=== PATIENT | female | born 1960 | race Two or more races ===

== ENCOUNTER 2017-01-09 05:44 | Inpatient (IN) | payer OTHER ==
[2017-01-09] VITALS (12 sets, daily range): BP systolic 105–137; BP diastolic 57–82
[~2017-01-09] VITALS: Ht 152.4 cm; Wt 74.4 kg
[2017-01-09] MEDS ORDERED: IV SET PRIMARY 1 EA INFUS.SET MC ONE (06:18)
[2017-01-09] MEDS ORDERED: NEEDLELESS EST SET LARGE BORE 1 EA INFUS.SET MC ONE (06:18)
[2017-01-09] MEDS ORDERED: CEFAZOLIN SODIUM/DEXTROSE,ISO 50 ML IV ONE (06:18)
[2017-01-09] MEDS ORDERED: IV LR 1000 ML 1,000 ML ONE (06:18)
[2017-01-09] MEDS ORDERED: SECONDARY IV SET 1 EA INFUS.SET MC ONE ×2 (06:18→16:08)
[2017-01-09] MEDS ORDERED: METF10002 PO (07:11)
[2017-01-09] MEDS ORDERED: BUSP15TA3 PO (07:11)
[2017-01-09] MEDS ORDERED: OMEP40CA37 PO (07:11)
[2017-01-09] MEDS ORDERED: SERT50TA PO (07:11)
[2017-01-09] MEDS ORDERED: HYDR10SY15 PO (07:11)
[2017-01-09] MEDS ORDERED: MELO-264 PO (07:11)
[2017-01-09] MEDS ORDERED: HYDR-548 PO (07:11)
[2017-01-09] MEDS ORDERED: ATOR40TA PO (07:11)
[2017-01-09] MEDS ORDERED: ZOLP10TA6 PO (07:12)
[2017-01-09] MEDS ORDERED: MIDAZOLAM HCL 2 MG/2ML VIAL ONE (08:53)
[2017-01-09] MEDS ORDERED: FENTANYL PF 100MCG/2ML AMPUL ONE ×4 (08:54→11:20)
[2017-01-09] MEDS ORDERED: ANCEF 1 GM/50 ML D5W IV ONE ×2 (09:00)
[2017-01-09] MEDS ORDERED: TRANEXAMIC ACID 3,000 MG in SODIUM CHLORIDE IRRIG SOLUTION 70 ML IR ONE (09:00)
[2017-01-09] MEDS ORDERED: BUPIVACAINE MPF 0.5% W/EPI INJ 30 ML VIAL ONE (10:56)
[2017-01-09] MEDS ORDERED: BACITRACIN 50000 UNITS/VIAL ONE (10:56)
[2017-01-09] MEDS ORDERED: KETOROLAC TROMETHAMINE INJ 30 MG/ML VIAL ONE (10:56)
[2017-01-09] MEDS ORDERED: HYDROMORPHONE 1 MG/1 ML DISP.SYRIN ONE (11:13)
[2017-01-09] MEDS ORDERED: ZOFRAN 4mg/2ML IV PRN (12:00)
[2017-01-09] MEDS ORDERED: DULCOLAX 10 MG/SUPP.RECT RC PRN (12:00)
[2017-01-09] MEDS ORDERED: TYLENOL 650 MG TABLET PO PRN (12:00)
[2017-01-09] MEDS ORDERED: AMBIEN 5 MG TABLET PO PRN (12:00)
[2017-01-09] MEDS ORDERED: ANCEF 1 G in IV D5W 50 ML IV SCH (12:00)
[2017-01-09] MEDS ORDERED: HYDROMORPHONE 1 MG/1 ML DISP.SYRIN SQ PRN (12:00)
[2017-01-09] MEDS ORDERED: SENOKOT 8.6 MG TABLET PO PRN (12:00)
[2017-01-09] MEDS ORDERED: HYDROCODONE/APAP 5/325MG 1 EACH TABLET PO PRN (12:00)
[2017-01-09] MEDS ORDERED: COLACE 250 MG CAPSULE PO PRN (12:00)
--- NOTE | 2017-01-09 12:00 | NUR ---
MS RN NOTES RECEIVED PATIENT FROM OR COMPLAINING OF MODERATE PAIN. ALERT, ORIENTED X4 WITH AT BEDSIDE. PATIENT ORIENTED TO ROOM CALL LIGHT WITHIN REACH. WILL CONTINUE TO MONITOR.
[2017-01-09] MEDS ORDERED: IV SET PRIMARY PUMP SET 1 EA INFUS.SET MC ONE (12:29)
[2017-01-09] MEDS ORDERED: SET PCA INFUSE SET 1 EA INFUS.SET MC ONE (12:30)
[2017-01-09] MEDS: HYDROCODONE/APAP 10/325MG 1 EA TABLET PO PRN (12:47)
[2017-01-09] MEDS: IV D5/0.45 NACL 1,000 ML IV PRN (12:49)
--- NOTE | 2017-01-09 13:00 | NUR ---
MS RN NOTES PATIENT COMPLAINS OF PAIN, DEMURRAGE AGENT PUMP STARTED FOR PATIENT PER MD ORDER WILL CONTINUE TO MONITOR CLOSELY.
[2017-01-09] MEDS: HYDROMORPHONE MDV 30 MG in IV NS 0.9% 15 ML, PCA TOTAL VOLUME 1 BAG IV PRN ×3 (13:03)
--- NOTE | 2017-01-09 15:22 | NUR ---
MS RN NOTES PATIENT AMBULATED WITH PT FOR 60 FEET WITH ASSISTANCE.
[2017-01-09] MEDS: SERTRALINE HCL 50 MG TABLET PO SCH (16:11)
[2017-01-09] MEDS: busPIRone 5 MG TABLET PO SCH (16:12)
[2017-01-09] MEDS: METFORMIN 500 MG TABLET PO SCH (16:12)
[2017-01-09] MEDS: ANCEF 1 G in IV D5W 50 ML IV SCH (16:13)
[2017-01-09] MEDS: RIVAROXABAN 10 MG TABLET PO SCH (16:14)
[2017-01-09] MEDS: ATORVASTATIN 40 MG TABLET PO SCH (17:30)
--- NOTE | 2017-01-09 18:40 | NUR ---
MS RN NOTES PATIENT IN BED RESTING NO SOB OR ACUTE DISTRESS NOTED. ALL DUE MEDICATIONS GIVEN. ALL NEEDS MET. WILL ENDORSE TO PM SHIFT PAOLO.
--- NOTE | 2017-01-09 19:46 | NUR ---
MS/RN OPENING NOTES RECEIVED PATIENT IN BED, AWAKE,ALERTX4 FAMILY MEMBER AT BEDSIDE. WITH F/C. MONITORING FOR PAIN DUE TO S/P LEFT KNEE REPLACEMENT. WILL CONTINUE TO MONITOR AND PROVIDE CARE.CALL LIGHTS WITHIN REACH.
[2017-01-09] MEDS ORDERED: MAG HYDROX/AL HYDROX/SIMETH 30 ML UDC PO PRN (21:30)
[2017-01-09] MEDS ORDERED: diphenhydrAMINE HCL 25 MG CAPSULE PO PRN (21:30)
[2017-01-09] MEDS ORDERED: CLONIDINE HCL 0.1 MG TABLET PO PRN (21:30)
--- NOTE | 2017-01-09 21:33 | NUR ---
MS/RN NOTES PHARMACY INFORMED ABOUT USE OF DILAUDID AWNING MAKER AND INSTALLER PUMP AND HAVE REQUESTED FOR REFILL BAG. KEPT IN NARCOTIC BIN FOR SAFETY.MD DR. FRENCH MADE ROUNDS TO CHECK PATIENT CONDITION.
[2017-01-09] MEDS ORDERED: ZOLPIDEM TARTRATE 10 MG TABLET PO SCH (22:00)
[2017-01-09] MEDS ORDERED: ZOLPIDEM TARTRATE 10 MG TABLET ONE (23:24)
[2017-01-09] MEDS: ZOLPIDEM TARTRATE 10 MG TABLET PO PRN (23:29)
[2017-01-10] MEDS: ANCEF 1 G in IV D5W 50 ML IV SCH (00:29)
--- NOTE | 2017-01-10 01:45 | NUR ---
MS/RN NOTES PATIENT VERBALIZED THE NEED FOR BREAK THROUGH PAIN. NORCO 5 /325 MG PO TAB. PAIN MONITORING/EFFECTIVENESS.
[2017-01-10] MEDS: HYDROCODONE/APAP 10/325MG 1 EA TABLET PO PRN ×5 (01:49→21:02)
[2017-01-10] MEDS: IV D5/0.45 NACL 1,000 ML IV PRN (04:52)
--- NOTE | 2017-01-10 06:13 | NUR ---
MS/RN NOTES PATIENT AWAKE, ALERT X3. ABLE TO VERBALIZE NEEDS. INFORMED PAIN MONITORING AND USE NEEDED PAIN MEDICATION VIA SPLITTER MACHINE PIMP. CPM TO BE PROVIDED AND REQUIESTED IN AM . AWAITING FOR PT.CALL LIGHTS WITHIN REACH.
--- NOTE | 2017-01-10 06:47 | NUR ---
MS/RN CLOSING NOTES PATIENT IN HOB ELEVATE, AWAKE, ALERTX3. NO S/S OF SOB OR DISTRESS. WILL ENDORSE TO AM RN PAOLO.
--- NOTE | 2017-01-10 07:00 | NUR ---
NURSE OPENING NOTES: RECEIVED REPORT FROM NIGHT NURSE. PT WAS SITTING UP IN BED WATCHING TV WITH BED IN LOWEST POSITION, CALL LIGHTS WITHIN REACH,TWO SIDE RAILS UP, NO SIGNS OF SOB OR DISTRESS. WILL ASSESS, MONITOR, AND IMPLEMENT PLAN OF CARE.
[2017-01-10 08:00] VITALS: BP 125/80
[2017-01-10] MEDS: SERTRALINE HCL 50 MG TABLET PO SCH (08:29)
[2017-01-10] MEDS: METFORMIN 500 MG TABLET PO SCH ×2 (08:29→16:25)
[2017-01-10] MEDS: busPIRone 5 MG TABLET PO SCH ×2 (08:29→16:31)
[2017-01-10] MEDS: PANTOPRAZOLE 40 MG TABLET.DR PO SCH (08:30)
[2017-01-10] MEDS ORDERED: MELOXICAM 7.5 MG TABLET PO SCH (09:00)
[2017-01-10] MEDS: DOCUSATE SODIUM 100 MG CAPSULE PO SCH ×2 (09:40→16:24)
[2017-01-10 16:00] VITALS: BP 134/67
[2017-01-10] MEDS: RIVAROXABAN 10 MG TABLET PO SCH (16:25)
[2017-01-10] MEDS: BLOOD SUGAR DIAGNOSTIC 1 EACH STRIP IN SCH ×2 (17:41→22:00)
[2017-01-10] MEDS: ATORVASTATIN 40 MG TABLET PO SCH (17:49)
[2017-01-10] MEDS ORDERED: SET PCA INFUSE SET 1 EA INFUS.SET MC ONE (18:14)
[2017-01-10] MEDS: HYDROMORPHONE MDV 30 MG in IV NS 0.9% 15 ML, PCA TOTAL VOLUME 1 BAG IV PRN ×3 (18:30)
--- NOTE | 2017-01-10 19:34 | NUR ---
NURSE CLOSING NOTES PATIENT IS RESTING IN BED WITH BED IN THE LOWEST POSITION, CALL LIGHT WITHIN REACH, BOTH SIDE RAILS UP X2. PATIENT WAS TALKING TO HER SON, WITH NO SIGNS OF SOB OR SIGNS OF DISTRESS. GAVE REPORT TO NIGHT NURSE.
[2017-01-10 20:00] VITALS: BP 125/75
--- NOTE | 2017-01-10 20:00 | NUR ---
RECEIVED PATIENT IN BED, ALERT AND ORIENTED X4, CALM, NO SOB, NO RESPIRATORY DISTRESS, S/P LEFT TKA 01/10/17, ON VICE PRESIDENT REGULATORY DILAUDID, ON SP02 MONITORING, 02 SAT 99%, REINFORCE TEACHING REGARDING VICE PRESIDENT REGULATORY USE, LEFT KNEE DRESSING INTACT, NO BLEEDING NOTE. REPOSITIONED FOR COMFORT, PUT PATIENT IN CPM PER SCHEDULE. PATIENT GIVEN BEDPAN, NEEDS ATTENDED, CALL LIGHT WITHIN REACH.
[2017-01-10 21:13] VITALS: BP 125/75
[2017-01-11] MEDS: HYDROCODONE/APAP 10/325MG 1 EA TABLET PO PRN ×7 (01:58→21:00)
--- NOTE | 2017-01-11 02:08 | NUR ---
COMPLAINING OF 8/10 PAIN TO LEFT KNEE, GIVEN NORCO 10/325 PO, WILL CONTINUE TO MONITOR.
--- NOTE | 2017-01-11 03:08 | NUR ---
PATIENT RESTING COMFORTABLY IN BED, NO RESPIRATORY DISTRESS, KEPT HOB ELEVATED, 02 SAT AT 2LPM VIA NC 99%, WILL CONTINUE TO MONITOR.
[2017-01-11] MEDS: BLOOD SUGAR DIAGNOSTIC 1 EACH STRIP VI SCH ×4 (06:45→22:07)
[2017-01-11] MEDS: INSULIN REGULAR, HUMAN 100 UNIT/ML 3 ML VIAL SQ PRN ×3 (06:46→18:06)
[2017-01-11] MEDS ORDERED: DEXTROSE 50%-WATER 50 ML DISP.SYRIN IV PRN (07:00)
--- NOTE | 2017-01-11 07:00 | NUR ---
PATIENT IS AWAKE AND ALERT, NO SOB, NO RESPIRATORY DISTRESS, S/P LEFT KNEE ARTHROPLASTY, PAIN MANAGEMENT VIA CREDIT RATING INSPECTOR PUMP AND NORCO 10/325 PO PRN AND DILAUDID 1 MG SQ FOR BREAKTHROUGH PAIN. LEFT KNEE DRESSING IS CLEAN, NO BLEEDING. ABLE TO VOID USING BEDPAN WITHOUT DIFFICULTY, NEEDS ATTENDED, CALL LIGHT WITHIN REACH.
[2017-01-11 08:00] VITALS: BP 132/73
--- NOTE | 2017-01-11 08:00 | NUR ---
MS RN [id number] ON BED, AWAKE,ALERT,ORIENTED X4,NOT IN ANY FORM OF DISTRESS, RESPIRATIONS EVEN AND UNLABORED,ABDOMEN SOFT,POSITIVE BOWEL SOUNDS, S/P LEFT KNEE SX, W/ EDGE INKER HEELS OF DILAUDID, DENIES PAIN AT THIS TIME, SX SITE W/ DRESSING DRY AND INTACT, WILL MONITOR PATIENT'S CONDITION.
--- NOTE | 2017-01-11 08:30 | NUR ---
MS BAE BREAKFAST SERVED,DUE MEDS GIVEN. TOLERATED WELL.
[2017-01-11] MEDS: DOCUSATE SODIUM 100 MG CAPSULE PO SCH ×2 (09:14→18:00)
[2017-01-11] MEDS: busPIRone 5 MG TABLET PO SCH ×2 (09:14→18:00)
[2017-01-11] MEDS: PANTOPRAZOLE 40 MG TABLET.DR PO SCH (09:14)
[2017-01-11] MEDS: SERTRALINE HCL 50 MG TABLET PO SCH (09:14)
[2017-01-11] MEDS: METFORMIN 500 MG TABLET PO SCH ×2 (09:14→18:00)
--- NOTE | 2017-01-11 11:00 | NUR ---
MS RN WAS SEEN BY PT, WALKS AROUND W/ WALKER.DENITRATOR OPERATOR DC,WILL GIVE NORCO INSTEAD.
[2017-01-11 11:15] LABS: BASOPHILS % (AUTO) 0.1 % (0.0-2.0); HEMATOCRIT 32 % (33-45); HEMOGLOBIN 10.9 g/dL (11.5-14.8); LYMPHOCYTES # (AUTO) 1.3 /CMM (0.8-4.8); LYMPHOCYTES % (AUTO) 8.6 % (20.0-44.0); MEAN CORPUSCULAR HEMOGLOBIN 31 PG (26.0-33.0); MEAN CORPUSCULAR HGB CONC 34 g/dl (31.0-36.0); MEAN CORPUSCULAR VOLUME 91 fL (82-100); MONOCYTES % (AUTO) 6.4 % (2.0-12.0); NEUTROPHILS # (AUTO) 12.7 /CMM (1.8-8.9); NEUTROPHILS % (AUTO) 84.9 % (43.0-81.0); PLATELET COUNT (AUTO) 217 /CMM (150-450); RDW COEFFICIENT OF VARIATION 13.1 (11.5-15.0); RED BLOOD CELL COUNT(AUTO) 3.51 MIL/uL (4.0-5.2)
[2017-01-11 16:00] VITALS: BP 127/73
--- NOTE | 2017-01-11 17:25 | NUR ---
MS NR BS-181 - 3 UNITS GIVEN.
[2017-01-11] MEDS: ATORVASTATIN 40 MG TABLET PO SCH (18:00)
[2017-01-11] MEDS: RIVAROXABAN 10 MG TABLET PO SCH (18:01)
--- NOTE | 2017-01-11 18:29 | NUR ---
MS RN ON BED, NO DISTRESS NOTED.
--- NOTE | 2017-01-11 19:30 | NUR ---
RN NOTES RECEIVED PT. AWAKE ON BED, A/OX3, INDONESIAN/LATVIAN SPEAKING, DRESSING ON THE LEFT KNEE DRY AND INTACT, ALL LIGHT WITHIN REACH, SIDERAILS UPX2 CONTINUE TO MONITOR
[2017-01-11 20:00] VITALS: BP 127/73
--- NOTE | 2017-01-11 21:00 | NUR ---
RN NOTES COMPLAINED OF LEFT KNEE PAIN- NORCO 10/325MG PO GIVEN ORDERED, V/S STABLE
[2017-01-11] MEDS: *INSULIN REGULAR(HUMULIN R)HUM 100 UNIT/ML VIAL SQ PRN (22:08)
[2017-01-11] MEDS: ZOLPIDEM TARTRATE 10 MG TABLET PO PRN (22:13)
[2017-01-12] MEDS: HYDROCODONE/APAP 10/325MG 1 EA TABLET PO PRN ×6 (02:04→21:29)
--- NOTE | 2017-01-12 02:09 | NUR ---
RN NOTES COMPLAINED OF LEFT KNEE PAIN- NORCO 10/325 MG PO GIVEN ORDERED, V/S STABLE
--- NOTE | 2017-01-12 06:08 | NUR ---
RN NOTES BLOOD SUGAR-144, PT. REFUSED INSULIN COVERAGE
[2017-01-12 06:16] LABS: BASOPHILS % (AUTO) 0.2 % (0.0-2.0); EOSINOPHILS % (AUTO) 0.3 % (0.0-6.0); HEMATOCRIT 30 % (33-45); HEMOGLOBIN 10.4 g/dL (11.5-14.8); LYMPHOCYTES # (AUTO) 2.3 /CMM (0.8-4.8); LYMPHOCYTES % (AUTO) 19.6 % (20.0-44.0); MEAN CORPUSCULAR HEMOGLOBIN 31 PG (26.0-33.0); MEAN CORPUSCULAR HGB CONC 34 g/dl (31.0-36.0); MEAN CORPUSCULAR VOLUME 92 fL (82-100); MONOCYTES % (AUTO) 8.4 % (2.0-12.0); NEUTROPHILS # (AUTO) 8.3 /CMM (1.8-8.9); NEUTROPHILS % (AUTO) 71.5 % (43.0-81.0); PLATELET COUNT (AUTO) 218 /CMM (150-450); RDW COEFFICIENT OF VARIATION 12.9 (11.5-15.0); RED BLOOD CELL COUNT(AUTO) 3.31 MIL/uL (4.0-5.2); WHITE BLOOD COUNT (AUTO) 11.6 K/uL (4.3-11.0)
--- NOTE | 2017-01-12 06:49 | NUR ---
RN NOTES COMPLAINED OF LEFT KNEE PAIN- OXY IR 15MG PO GIVEN ORDERED, V/S STABLE, MORNING CARE RENDERED, PT. NEEDS ATTENDED Addendum: 01/12/17 at 0701 by BUD MADDEN RN RIGHT PAIN MEDICATION NORCO 10/325 MG PO
[2017-01-12 06:57] LABS: CALCIUM, SERUM 8.4 mg/dL (8.5-10.1); CREATININE 0.6 mg/dL (0.6-1.3); POTASSIUM 3.8 mmol/L (3.5-5.1)
--- NOTE | 2017-01-12 07:30 | NUR ---
RN NOTES RECEIVED PT. AWAKE ON BED, A/OX3, ALBANIAN/FRENCH SPEAKING, DRESSING ON THE LEFT KNEE DRY AND INTACT, ALL LIGHT WITHIN REACH, SIDERAILS UPX2 CONTINUE TO MONITOR
[2017-01-12 08:00] VITALS: BP 135/70
[2017-01-12 08:06] VITALS: BP 138/70
[2017-01-12] MEDS: BLOOD SUGAR DIAGNOSTIC 1 EACH STRIP VI SCH ×4 (08:17→21:29)
[2017-01-12] MEDS: PANTOPRAZOLE 40 MG TABLET.DR PO SCH (08:36)
[2017-01-12] MEDS: DOCUSATE SODIUM 100 MG CAPSULE PO SCH ×2 (08:36→16:55)
[2017-01-12] MEDS: busPIRone 5 MG TABLET PO SCH ×2 (08:36→16:55)
[2017-01-12] MEDS: SERTRALINE HCL 50 MG TABLET PO SCH (08:37)
[2017-01-12] MEDS: METFORMIN 500 MG TABLET PO SCH ×2 (08:37→16:55)
--- NOTE | 2017-01-12 09:00 | NUR ---
MS RN PT IN BED, AWAKE,ALERT,ORIENTED X4,S/P L KNEE TKA BY DR. HOFF 01/09/17, DRESSING AND BANDAGE IN PLACE. ON RA, NOT IN ANY FORM OF DISTRESS, RESPIRATIONS EVEN AND UNLABORED,ABDOMEN SOFT,POSITIVE BOWEL SOUNDS, DENIES PAIN AT THIS TIME, BED LOW LOCKED. DISCUSSES POC, VERBALIZED UNDERSTANDING. CALL LIGHT WITHIN REACH, WILL MONITOR PATIENT'S CONDITION.
--- NOTE | 2017-01-12 09:30 | NUR ---
MS RN NOTES ADMINISTERED DUE MEDS.
--- NOTE | 2017-01-12 11:36 | NUR ---
MS RN NOTES BS CHECK = 128 MG/DL. NO INSULIN COVERAGE GIVEN.
[2017-01-12 16:00] VITALS: BP 145/72
[2017-01-12] MEDS ORDERED: MAGNESIUM HYDROXIDE 30 ML UDC PO PRN (16:30)
[2017-01-12] MEDS: RIVAROXABAN 10 MG TABLET PO SCH (16:57)
[2017-01-12] MEDS: ATORVASTATIN 40 MG TABLET PO SCH (17:02)
--- NOTE | 2017-01-12 17:04 | NUR ---
MS RN NOTES BS CHECK = 161 MG/DL. PATIENT REFUSED INSULIN AT THIS TIME, SHE SAID SHE WILL JUST HAVE METFORMIN FOR NOW.
[2017-01-12 18:00] VITALS: BP 145/72
--- NOTE | 2017-01-12 18:31 | NUR ---
MS RN CLOSING NOTES PT IN BED RESTING, A/OX3, ESTONIAN/BULGARIAN SPEAKING, S/P LEFT KNEE TKA 01/09/[address] HOFF, CDI DRESSING. ON RA, NAD, NO SOB, RFA G22 FLUSHES WELL SITE CLEAR, AMBULATES WITH WALKER AND P.T. SEEN BY DR. FRENCH EARLIER. PAIN MANAGEMENT ORDERED. ALL NEEDS MET, CALL LIGHT WITHIN REACH, SIDERAILS UPX2, WILL ENDORSE TO NEXT SHIFT FOR PAOLO.
--- NOTE | 2017-01-12 19:30 | NUR ---
RN NOTES RECEIVED PT. AWAKE ON BED TALKING ON HER CELLPHONE, LEFT KNEE DRESSING DRY AND INTACT, DENIES PAIN, NO SOB, CLL LIGHT WITHIN REACH, SIDERAILS UPX2 CONTINUE TO MONITOR
[2017-01-12 20:00] VITALS: BP_SYST 141; BP_SYST 144; BP_DIAS 82; BP_DIAS 85
--- NOTE | 2017-01-12 21:30 | NUR ---
RN NOTES COMPLAINED OF LEFT KNEE PAIN- NORCO 10/325 MG PO GIVEN ORDERED, V/S STABLE
[2017-01-12] MEDS: *INSULIN REGULAR(HUMULIN R)HUM 100 UNIT/ML VIAL SQ PRN (21:42)
[2017-01-12] MEDS: ZOLPIDEM TARTRATE 10 MG TABLET PO PRN (22:30)
[2017-01-13] MEDS: HYDROCODONE/APAP 10/325MG 1 EA TABLET PO PRN ×4 (01:15→12:23)
--- NOTE | 2017-01-13 01:21 | NUR ---
RN NOTES COMPLAINED OF LEFT KNEE PAIN- NORCO 10/325 MG PO GIVEN ORDERED, V/S STABLE
--- NOTE | 2017-01-13 05:10 | NUR ---
RN NOTES COMPLAINED OF LEFT KNEE PAIN- NORCO 10/325 MG IV GIVEN ORDERED, V/S STABLE
--- NOTE | 2017-01-13 06:00 | NUR ---
RN NOTES BLOOD SUGAR-138- REFUSED INSULIN COVERAGE
--- NOTE | 2017-01-13 06:27 | NUR ---
RN NOTES AWAKE MORNING CARE RENDERED, PT. NEEDS ATTENDED
--- NOTE | 2017-01-13 07:30 | NUR ---
RN NOTES RECEIVED PT. AWAKE ON BED, A/OX3, JAPANESE/AZERI SPEAKING, DRESSING ON THE LEFT KNEE DRY AND INTACT, ALL LIGHT WITHIN REACH, SIDERAILS UPX2 CONTINUE TO MONITOR
[2017-01-13 08:00] VITALS: BP 130/71
[2017-01-13] MEDS: BLOOD SUGAR DIAGNOSTIC 1 EACH STRIP VI SCH ×2 (08:22→11:36)
[2017-01-13] MEDS: METFORMIN 500 MG TABLET PO SCH (09:03)
[2017-01-13] MEDS: SERTRALINE HCL 50 MG TABLET PO SCH (09:03)
[2017-01-13] MEDS: PANTOPRAZOLE 40 MG TABLET.DR PO SCH (09:03)
[2017-01-13] MEDS: busPIRone 5 MG TABLET PO SCH (09:03)
[2017-01-13] MEDS: DOCUSATE SODIUM 100 MG CAPSULE PO SCH (09:03)
--- NOTE | 2017-01-13 09:30 | NUR ---
MS RN PT IN BED, AWAKE,ALERT,ORIENTED X4,S/P L KNEE TKA BY DR. HOFF 01/09/17, DRESSING AND BANDAGE IN PLACE. ON RA, NOT IN ANY FORM OF DISTRESS, RESPIRATIONS EVEN AND UNLABORED,ABDOMEN SOFT,POSITIVE BOWEL SOUNDS, DENIES PAIN AT THIS TIME, BED LOW LOCKED. DISCUSSED POC, VERBALIZED UNDERSTANDING. CALL LIGHT WITHIN REACH, WILL MONITOR PATIENT'S CONDITION. ADMINISTERED DUE MEDS.
--- NOTE | 2017-01-13 11:26 | NUR ---
MS CATALINO BOYCE. Addendum: 01/13/17 at 1150 by HOOD OJEDA RN CORRECTION: DISREGARD THIS DOCUMENTATION INTENDED FOR ANOTHER PATIENT.
--- NOTE | 2017-01-13 11:38 | NUR ---
MS RN NOTES BS CHECK = 124 MG/DL. NO INSULIN COVERAGE GIVEN.
--- NOTE | 2017-01-13 14:28 | NUR ---
MS BAE NOTES REPORT GIVEN TO LES BAE AT FACILITY. PATIENT MACHINE LEATHER TRIMMER TIME - AT 1730. Addendum: 01/13/17 at 1455 by HOOD OJEDA RN CORRECTION: MACHINE LEATHER TRIMMER TIME IS 1530, LES AT FACILITY NOTIFIED.
--- NOTE | 2017-01-13 15:27 | NUR ---
MS RN NOTES PATIENT DISCHARGED TO [facility] PER MD IN STABLE CONDITION. PROVIDED DC INSTRUCTION, MED RECON LIST AND HEALTH TEACHINGS. PATIENT TO FOLLOW UP WITH PCP AND DR. HOFF IN 1-2 WEEKS AND WILL MAKE OWN SCHEDULE. RT FA IV ACCESS REMOVED, NO BLEEDING, DRESSING IN PLACE. PATIENT WITH CDI SURGICAL DRESSING TO LEFT KNEE. IMMOBILIZER IN PLACE. ALL BELONGINGS CHECKED AND RETURNED. ALL PAPER WORKS SIGNED. TO BE PICKED UP BY AMBULANCE TO TRANSPORT PATIENT TO FACILITY.
[2017-01-13 15:43] VITALS: BP 130/71
== END 2017-01-13 15:45 | DRG 470 ==
LOC: DS 05:44 → MED 12:25
PROVIDERS: ADMIT Specialist; ATTEND Internal Medicine
PROC: 0SRD0J9 Replacement of Left Knee Joint with Synthetic Substitute, Cemented, Open Approach (ICD-10-PCS; principal; 2017-01-09 08:10)
DX: M17.12 Unilateral primary osteoarthritis, left knee (principal); E11.9 Type 2 diabetes mellitus without complications; E66.9 Obesity, unspecified; E78.5 Hyperlipidemia, unspecified; F41.9 Anxiety disorder, unspecified; I10 Essential (primary) hypertension; Z96.652 Presence of left artificial knee joint; K59.00 Constipation, unspecified; F32.9 Major depressive disorder, single episode, unspecified
CPT/HCPCS: 36415; 80048-TC; 82962-TC; 85025-TC; 86850-TC; 86921-TC; 87081-TC; 88305-TC; 88311-TC; 97001-TC; 97110-TC; 97116-TC; 97530-TC; 97760-TC; A4216; A4217; A4606; A6402; C1713; J0690; J1170; J1815; J1885; J2250; J2405; J2704; J3010; J3490; J7060; J7120; L1830